=== PATIENT | male | born 1950 | race Caucasian/White ===

== ENCOUNTER 2019-07-21 13:54 | Inpatient (IN) | payer MEDICARE ==
[~2019-07-21] VITALS: Ht 182.9 cm; Wt 88.6 kg
--- NOTE | ~2019-07-21 | HEMODYNAMI ---
PATIENT:EL REYES MEDICAL RECORD: [id number] : 46 LOCATION:[place] [address] ADMISSION DATE: 07/21/19 Generatedon:07/23/201915:33 Patient name: EL REYES Patient #: [id number] SSN: : 1950 Date of study: 07/23/2019 Page: Of Hemodynamic Procedure Report Patient Data Patient Demographics Procedure consent was obtained First Name: EL Gender: Male Last Name: ERIC : 1950 [facility] Initial: KEYUR Age: 68 year(s) Patient #: [id number] Race: Unknown Additional ID: [id number] Contact details [address]: [address] [place] [address] State: [place] City: [place] Zip code: [address] Admission Admission Data Admission Date: 07/21/2019 Admission Time: 14:29 Room #: [facility] Procedure Procedure Types Cath Procedure Peripheral Cath Diagnostic Procedure Venography Extremity Procedure Description Procedure Date Procedure Date: 07/23/2019 Procedure Start Time: 14:25 Procedure Staff Name Function Santana Bey MD Performing Physician Adriano Sanderson RT Monitor Tiffanie Pérez RT Scrub Magy Castañeda RN Nurse Procedure Data Cath Procedure Fluoroscopy Diagnostic fluoroscopy Total fluoroscopy Time: 6 time: 6 min min Diagnostic fluoroscopy Total fluoroscopy dose: 124 dose: 124 mGy mGy Contrast Material Contrast Material Type Amount (ml) Isovue 300 40 Procedure Medications Medication Administration Route Dosage Heparin Flush Bag added to field 2 bags (1000units/500ml NS) Lidocaine 1% added to field 20 Versed I.V. 1 mg Fentanyl I.V. 50 mcg Benadryl I.V. 50 mg Heparin Bolus I.V. 5000 units TPA 10 Versed I.V. 1 mg Fentanyl I.V. 50 mcg Versed I.V. 1 mg Fentanyl I.V. 50 mcg Hemodynamics Rest Heart Rate: 97 (bpm) Snapshots Pre Cath Intra NCS Post Cath Vital Signs Time Heart Resp SPO2 etCO2 NIBP (mmHg) Rhythm Pain Sedation Rate (ipm) (%) (mmHg) Status Level (bpm) 14:08:37 95 14 100 27.6 175/99(142) NSR 0 (11) 10(A) , No pain 14:12:53 97 8 100 31.3 169/94(128) NSR 0 (11) 10(A) , No pain 14:17:09 97 13 100 32.8 164/99(130) NSR 0 (11) 10(A) , No pain 14:21:23 99 11 100 32.1 161/98(131) NSR 0 (11) 9(A) , No pain 14:25:39 96 10 100 33.6 158/88(118) NSR 0 (11) 9(A) , No pain 14:29:57 102 13 100 32.1 170/95(126) NSR 0 (11) 9(A) , No pain 14:34:15 100 33.6 165/92(121) NSR 0 (11) 8(A) , No pain 14:38:36 97 17 100 30.6 158/89(121) NSR 0 (11) 8(A) , No pain 14:42:54 97 17 100 30.6 161/90(116) NSR 0 (11) 8(A) , No pain 14:47:09 96 19 100 32.1 158/84(121) NSR 0 (11) 8(A) , No pain 14:51:30 90 16 100 29.1 169/91(133) NSR 0 (11) 8(A) , No pain 14:55:52 89 8 100 35.8 171/88(131) NSR 0 (11) 8(A) , No pain 15:00:04 87 17 98 34.3 152/93(122) NSR 0 (11) 8(A) , No pain 15:04:18 86 15 97 30.6 146/91(128) NSR 0 (11) 8(A) , No pain 15:08:32 88 18 99 32.1 164/93(126) NSR 0 (11) 8(A) , No pain 15:12:54 83 16 100 30.6 158/89(129) NSR 0 (11) 8(A) , No pain 15:17:12 83 17 99 33.6 154/91(122) NSR 0 (11) 8(A) , No pain 15:21:30 82 17 99 34.3 155/83(118) NSR 0 (11) 8(A) , No pain 15:25:48 80 14 99 32.1 148/92(123) NSR 0 (11) 8(A) , No pain 15:30:02 86 16 100 29.8 154/99(125) NSR 0 (11) 8(A) , No pain Medications Time Medication Route Dose Verified Delivered Reason Notes Effe ctiveness by by 14:09:52 Heparin Flush added 2 Santana Dillon used for Bag to bags Maida Bey procedure (1000units/500ml field MD PEREZ NS) 14:10:29 Lidocaine 1% added 20ml Santana Dillon for local to vial Maida Bey anesthetic field MD PEREZ 14:21:34 Benadryl I.V. 50 mg Santana Bhatti Per Maida Castañeda RN physician 14:31:21 Versed I.V. 1 mg Santana Bhatti for Maida Castañeda RN sedation 14:31:32 Fentanyl I.V. 50 Santana Bhatti for [facility] Maida Castañeda RN sedation 14:39:28 Heparin Bolus I.V. 5000 Santana Bhatti Per units Maida Castañeda RN physician 14:47:48 TPA IA 10MG Santana Dillon Per Maida keller MD, MD 14:54:59 Versed I.V. 1 mg Santana Bhatti for Maida Castañeda RN sedation 14:55:09 Fentanyl I.V. 50 Santana Bhatti for mcg Maida Castañeda RN sedation 15:12:43 Versed I.V. 1 mg Santana Bhatti for Maida Castañeda RN sedation 15:12:52 Fentanyl I.V. 50 Santana Bhatti for [facility] Maida Castañeda RN sedation Procedure Log Time Note 13:55:19 Adriano Sanderson RT (R) (CV) sent for patient. Start room use. 13:55:29 Time tracking: Regular hours (M-F 7:00 - 5:00) 13:55:37 Plan of Care:Hemodynamics will remain stable., Cardiac rhythm will remain stable., Comfort level will be maintained., Respiratory function will remain adequate., Patient/ family verbilizes understanding of procedure., Procedure tolerated without complication., Recovers from procedure without complications.. 13:55:59 Patient received from Med II to IR Alert and oriented. Tansferred to table in Prone position. 13:56:00 Correct patient and procedure confirmed by team. 13:56:04 Signed procedure consent form obtained from patient. 13:56:05 ECG and BP/O2 sat monitors applied to patient. 13:56:11 Full Disclosure recording started 13:56:11 - 13:56:16 H&P Date Dictated: 07/23/2019 Within 30 days and on chart.. 13:56:16 Pre-procedure instructions explained to patient. 13:56:17 Pre-op teaching completed and patient verbalized understanding. 13:56:34 Use device set IR Diagnostic 13:56:36 Bag Decanter (2002S) opened to sterile field. 13:56:36 Sterile Angiographic Pack opened to sterile field. 13:56:37 Tegaderm 4 x 4 (1626W) opened to sterile field. 14:03:28 Family in waiting room. 14:03:30 Patient NPO since Midnight. 14:03:38 Is the patient allergic to Iodine/contrast media? No. 14:03:42 Patient diabetic? No. 14:03:49 ACC The patient was administered the following blood thiners within the last 24 hours: ACCLovenox 14:03:55 - 14:03:55 ----Pre-sedation anethsthesia assessment.---- 14:03:58 Previous problem with sedation/anesthesia? No ? 14:03:59 Snore? Yes 14:04:00 Sleep apnea? No 14:04:02 Deviated septum? No 14:04:08 Opens mouth fully? Yes 14:04:09 Sticks out tongue? Yes 14:04:14 Airway obstruction? No ? 14:04:16 Dentures? No ? 14:04:28 IV patent on arrival in right hand with 0.9% NaCl at [facility]. 14:04:32 Sharps counted by scrub and verified by R.N. 14:04:32 Alarms reviewed by R. N. 14:04:50 left Popliteal region area was prepped with chlora-prep and draped in sterile fashion 14:07:28 Vital chart was started 14:08:46 Baseline sample Acquired. 14:09:52 Heparin Flush Bag (1000units/500ml NS) 2 bags added to field was administered by Santana Bey MD; used for procedure; Verbal order read back and verified. 14::29 Lidocaine 1% 20ml vial added to field was administered by Santana maldonado MD; for local anesthetic; Verbal order read back and verified. 14::28 Physician arrived 14:: --------ALL STOP TIME OUT------ 14::29 Final Timeout: patient, procedure, and site verified with staff and physician. All members of the team are in agreement. 14:21:33 Popliteal region site verified by team. 14:21:34 Benadryl 50 mg I.V. was administered by Magy Castañeda RN; Per physician ; Verbal order read back and verified. 14:21:36 Fire Safety Assessment: A--An alcohol-based skin anteseptic being used preoperatively., C--Open oxygen or nitrous oxide is being used. 14:21:45 2) 60-89 Mildly reduced kidney function, and other findings (as for stage 1) point to kidney disease. 14:21:49 Sedation plan: IV Moderate Sedation Medication:Versed, Fentanyl 14:25:02 Procedure started. 14:25:12 Local anesthetic to left popliteal vein with Lidocaine 1% by Santana Bey MD.INITIAL ACCESS ONLY 14:25:16 BENTSON 145cm wire (L84514) opened to sterile field. 14:25:16 Micropuncture VSI 4FR kit opened to sterile field. 14:29:15 Cordis 6Fr BRITE TIP 11cm sheath opened to sterile field. 14:31:21 Versed 1 mg I.V. was administered by Magy Castañeda RN; for sedation; Verbal order read back and verified. 14:31:23 GLIDE CATHETER 5FR ANGLED 65cm (CG507) opened to sterile field. 14:31:32 Fentanyl 50 mcg I.V. was administered by Magy Castañeda RN; for sedation ; Verbal order read back and verified. 14:34:40 ROADRUNNER .035 260 glide wire (T12562) opened to sterile field. 14:39:28 Heparin Bolus 5000 units I.V. was administered by Magy Castañeda RN; Per physician; Verbal order read back and verified. 14:39:52 Zelante 8Fr Angiojet catheter opened to sterile field. 14:41:07 AMPLATZ Super stiff Straight 260cm wire ([id number]) opened to sterile field. 14:42:30 Sheath 8fr. Dale 10cm opened to sterile field. 14:47:48 TPA 10MG IA was administered by Santana Bey MD; Per physician; Verba l order read back and verified. 14:54:59 Versed 1 mg I.V. was administered by Magy Castañeda RN; for sedation; Verbal order read back and verified. 14:55:09 Fentanyl 50 mcg I.V. was administered by Magy Castañeda RN; for sedation ; Verbal order read back and verified. 15:01:11 INFLATOR BasixTOUCH (MS8383) opened to sterile field. 15:03:07 Inflate balloon Inflation number: 1 A EVERCROSS 8 X 80 X 135 BALLOON ([id number]( was prepped and advanced across the Undefined1 , then inflated to 8 GUSTAVO for 0:10 (min:sec) . 15:12:43 Versed 1 mg I.V. was administered by Magy Castañeda RN; for sedation; Verbal order read back and verified. 15:12:52 Fentanyl 50 mcg I.V. was administered by Magy Castañeda RN; for sedation ; Verbal order read back and verified. 15:16:20 Procedure ended.(Physican Out) 15:19:23 Fluoroscopy time 06.00 minutes. 15:19:34 Fluoroscopy dose: 124 mGy 15:19:34 Flurop Dose total: 124 15:19:40 Contrast amount:Isovue 300 40ml. 15:19:44 Procedure and supply charges have been captured, reviewed, submitted an d are correct. 15:33:10 Vital chart was stopped Intervention Summary Intervention Notes Time ActionType Lesion and Equipment Used Action# Pressure Duration Attributes 15:03:07 Inflate Undefined1 EVERCROSS 8 X 1 8 00:10 balloon 80 X 135 BALLOON ([id number]( Device Usage Item Name Manufacture Quantity Catalog Number Hospital Part Current M inimal Lot# / Charge Number Stock Stock Serial# Code Bag Decanter Microtek 1 [id number] 16289 [id number] 5 () Medical Inc. Sterile Cardinal 1 [id number] 777983 899692 5 Angiographic Health Pack Tegaderm 4 x 4 3M 1 1626W 234972 967490 123395 5 (1626W) BENTSON 145cm Cook Medical 1 [id number] 429188 582927 5 wire ([id number]) Micropuncture VSI VASCULAR 1 7266V 239008 726469 5 VSI 4FR kit SOLUTIONS Cordis 6Fr Cardinal 1 [id number] 697344 988739 5 BRITE TIP 11cm Health sheath GLIDE CATHETER Terumo 1 CG507 414232 800520 5 5FR ANGLED 65cm (CG507) ROADRUNNER .035 Cook Medical 1 A75569 007512 600162 868732 5 [id number] 260 glide wire ([id number]) Zelante 8Fr [place] 1 775184-065 946890 855087 030263 5 Angiojet Scientific catheter AMPLATZ Super [place] 1 [id number] 276211 15230 734740 5 [id number] stiff Straight Scientific 260cm wire ([id number]) Sheath 8fr. Terumo 1 ISF164 430398 5344867 5 Dale 10cm INFLATOR Merit 1 HV7812 061322 941911 700796 5 Cloudkick ([id number]) EVERCROSS 8 X Medtronic 1 [id number] 784962 524146 1 80 X 135 BALLOON ([id number]( Signature Audit [place] Stage Time Signature Unsigned Intra-Procedure 07/23/2019 Adriano 3:33:07 PM [place] RT (R) (CV) [place] [address] [place] [address]
[~2019-07-21 13:54] MED LIST: MINOCIN100 MG PO; PRILOSEC20 MG PO
[2019-07-21] MEDS ORDERED: ZOCOR20 MG PO (15:21)
[2019-07-21] MEDS ORDERED: DHEA PO (15:22)
[2019-07-21] MEDS ORDERED: FLORAJEN3 CAPS460 MG PO (15:24)
[2019-07-21] MEDS ORDERED: ANDROGEL5 GM TP (15:24)
[2019-07-21] MEDS ORDERED: MULTI-DAY VITAM1 TAB PO (15:25)
[2019-07-21] MEDS ORDERED: ICAP PO (15:28)
[2019-07-21] MEDS ORDERED: FIBER-TABS625 MG PO (15:29)
[2019-07-21 15:37] VITALS: BP 139/85
--- NOTE | 2019-07-21 16:09 | NUR ---
COULD NOT FIND VEIN FOR IV. CHIRAG LOZANO COULD NOT FIND ONE EITHER. ANAMIKA LOZANOJOB RECRUITER NURSE CALLED.
[2019-07-21 16:42] VITALS: BP 139/85; Ht 182.9 cm; Wt 88.6 kg
--- NOTE | 2019-07-21 16:48 | NUR ---
ANAMIKA LOZANO GOT A 20G IV IN LEFT AC.
--- NOTE | 2019-07-21 19:03 | NUR ---
PT UP WALKIND AROUND IN ROOM ALERT AND ORIENTED X4. NO S/S OF DISTRESS AT THIS TIME. PT DENIES ANY PAIN OR NEEDS AT THIS TIME. BED LOW CALL LIGHT WITHIN REACH. WILL CONTINUE TO MONITOR.
[2019-07-21 20:00] VITALS: BP 123/73
--- NOTE | 2019-07-21 20:00 | NUR ---
BOTH PT IV'S IN LEFT AND RIGHT AC'S INFILTRATED. IV'S DC'D WITH CATHETER TIP IN PLACE. SWELLING NOTED IN LAC. WARM COMPRESS APPLIED. 20G IV ESTABLISHED IN PT'S LEFT FOREARM. IV PATENT. PT DENIES ANY PAIN OR NEEDS AT THIS TIME. BED LOW CALL LIGHT WITHIN REACH. WILL CONTINUE TO MONITOR.
[2019-07-21 23:01] LABS: CKMB 0.5 U/L (0.0-3.6); CREATINE KINASE 28 UL (21-232); TROPONIN-I < 0.017 ng/mL (0.000-0.060)
[2019-07-22] VITALS: BP 136/79
[2019-07-22 05:51] LABS: BASOPHILS 0.4 % (0-2); EOSINOPHILS 6.7 % (0-7); HEMOGLOBIN 13.2 g/dL (13.5-17.5); IMMATURE GRANULOCYTES 0.4 % (0-5); LYMPHOCYTES 26.6 % (15-50); MCH 30.5 pg (26.0-34.0); MCHC 33.8 g/dL (31.0-37.0); MCV 90.1 fL (80.0-100.0); MEAN PLATELET VOLUME 9.4 fL (7.4-10.4); MONOCYTES 9.5 % (2-11); NEUTROPHILS 56.4 % (40-80); RBC 4.33 10x6/uL (4.20-6.10); RDW 15.1 % (11.5-14.5); WBC 7.9 10x3/uL (4.8-10.8)
[2019-07-22 05:59] LABS: PLATELET COUNT 137 10x3/uL (130-400)
[2019-07-22 06:36] LABS: ANION GAP 12.4 mmol/L (8-16); CALCIUM 9.1 mg/dL (8.5-10.1); CARBON DIOXIDE 26.8 mmol/L (21.0-32.0); CREATININE - SERUM 1.1 mg/dL (0.6-1.3); PHOSPHOROUS 2.8 mg/dL (2.5-4.9); POTASSIUM - SERUM 4.2 mmol/L (3.5-5.1)
[2019-07-22 06:40] LABS: APTT 34.7 SECONDS (22.8-39.4); INR 1.15 (0.85-1.17); PROTIME 14.2 SECONDS (11.6-15.0)
--- NOTE | 2019-07-22 07:16 | NUR ---
REPORT RECEIVED. WILL CONTINUE WITH POC. PT CURRENTLY LYING SEMI FOWLERS. CALL LIGHT W/I REACH. PT IS AAO AND UP WITH ASSIST. RR EVEN AND UNLABORED ON RA. R.FOR PIV IS SALINE LOCKED. NO S/S OF DISTRESS NOTED. PT DENIES ANY NEEDS. WILL CTM.
[2019-07-22 08:00] VITALS: BP 117/77
--- NOTE | 2019-07-22 10:50 | NUR ---
I have reviewed this patient and I concur with the Shift Assessment completed by the Licensed Practical Nurse today this shift.
[2019-07-22 12:24] VITALS: BP 123/72
[2019-07-22 16:19] VITALS: BP 142/73
--- NOTE | 2019-07-22 19:27 | NUR ---
REPORT RECIEVED AND ROUNDING COMPLETE. PATIENT LAYING IN BED, SON AT BEDSIDE. PATIENT'S LEFT LEG IS ELEVATED. PATIENT HAS A LEFT FOREARM PIV THAT IS SALINE LOCKED, PIV HAS NO S/SX OF INFILTRATION OR INFECTION AT THIS TIME. PATIENT IS SHOWING NO S/SX OF DISTRESS AND STATES HE HAS NO NEEDS AT THIS TIME. CALL LIGHT WITHIN REACH AND BED IN LOWEST LOCKED POSITION.
[2019-07-22 20:15] VITALS: BP 127/74
[2019-07-23] VITALS (12 sets, daily range): BP systolic 116–151; BP diastolic 73–90
--- NOTE | 2019-07-23 04:33 | NUR ---
I have reviewed this patient and I concur with the Shift Assessment completed by the Licensed Practical Nurse today this shift.
[2019-07-23 06:37] LABS: ANION GAP 9.1 mmol/L (8-16); CALCIUM 8.7 mg/dL (8.5-10.1); CARBON DIOXIDE 28.7 mmol/L (21.0-32.0); CREATININE - SERUM 1.1 mg/dL (0.6-1.3); POTASSIUM - SERUM 4.8 mmol/L (3.5-5.1)
[2019-07-23 06:58] LABS: BASOPHILS 0.3 % (0-2); EOSINOPHILS 6.4 % (0-7); HEMATOCRIT 39.2 % (42.0-54.0); HEMOGLOBIN 13.2 g/dL (13.5-17.5); IMMATURE GRANULOCYTES 0.5 % (0-5); LYMPHOCYTES 33.2 % (15-50); MCH 30.5 pg (26.0-34.0); MCHC 33.7 g/dL (31.0-37.0); MCV 90.5 fL (80.0-100.0); MEAN PLATELET VOLUME 10.1 fL (7.4-10.4); MONOCYTES 9.1 % (2-11); NEUTROPHILS 50.5 % (40-80); PLATELET COUNT 162 10x3/uL (130-400); RBC 4.33 10x6/uL (4.20-6.10); RDW 15.2 % (11.5-14.5); WBC 7.5 10x3/uL (4.8-10.8)
--- NOTE | 2019-07-23 10:44 | NUR ---
URINE SPECIMEN CUP AND INSTRUCTIONS GIVEN TO PT ON HOW TO COLLECT. WILL WAIT FOR PT TO LET US KNOW WHEN HE COLLECTS SPECIMEN AND TAKE IT TO LAB.
--- NOTE | 2019-07-23 12:15 | NUR ---
I have reviewed this patient and I concur with the Shift Assessment completed by the Licensed Practical Nurse today this shift.
--- NOTE | 2019-07-23 12:21 | NUR ---
NPO SIGN HUNG ON DOOR AND PT AWARE OF NPO STATUS.
[2019-07-23 12:51] LABS: APPEARANCE CLEAR (CLEAR); BILIRUBIN NEGATIVE (NEGATIVE); COLOR YELLOW (YELLOW); GLUCOSE NEGATIVE (NEGATIVE); KETONE NEGATIVE (NEGATIVE); NITRITE NEGATIVE (NEGATIVE); PROTEIN NEGATIVE (NEGATIVE); SPECIFIC GRAVITY 1.005 (1.005-1.020); UROBILINOGEN NORMAL (NORMAL)
--- NOTE | 2019-07-23 12:58 | MORECARE ---
CASE MANAGEMENT DISCHARGE SUMMARY PATIENT: EL REYES GENE UNIT: [id number] ADM DATE: 07/21/19 AGE: 68 : 48 SEX: M ROOM/BED: D.2130 AUTHOR: KAREN JADE PHYSICIAN: REFERRING PHYSICIAN: PRIYA ALEXANDER MD DATE OF SERVICE: 07/23/19 Discharge Plan Patient Name: EL REYES Facility: [facility]:[place] : 1950 Planned Disposition: Home Anticipated Discharge Date: Discharge Date: Expected LOS: Initial Reviewer: [email or web address] Initial Review Date: 07/23/2019 Generated: 07/23/19 1:57 pm Comments DCP- Discharge Planning Updated by [email or web address]: Angelica Saravia on 07/23/19 11:[address] Patient Name: EL REYES Admission Status: Elective Accout number: [id number] Admission Date: 07-21-2019 : 1950 Admission Diagnosis: Attending: PRIYA ALEXANDER Current LOS: 2 Anticipated DC Date: Planned Disposition: Home Primary Insurance: MEDICARE A & B Discharge Planning Comments: CM MET WITH PATIENT ABOUT DC PLANNING/NEEDS. STATES NO NEEDS AND PLANS TO DC TO HOME WITH ROSALIA. HH AND REHAB DISCUSSED AND STATES DOES NOT NEED THEM. CM TO FOLLOW AND ASSIST. Sourcing Specialist: Angelica Saravia DCPIA - Discharge Planning Initial Assessment Updated by [email or web address]: Angeliac Saravia on 07/23/19 12:53 pm * Is the patient Alert and Oriented? Yes * PCP CLAUDETTE * [facility] * Preadmission Environment Home with Family * ADLs Independent * Equipment None * List name and contact numbers for known caregivers / representatives who currently or will assist patient after discharge: ROSALIA, * Community resources currently utilized None * Additional services required to return to the preadmission environment? No * Can the patient safely return to the preadmission environment? Yes * Has this patient been hospitalized within the prior 30 days at any hospital? No Patient Name: EL REYES Page 32624 at 1258 All edits/amendments must be made on the electronic document DICTATION DATE: 07/23/19 1257 PT ESCORT: LYNETTE 07/23/19 1257 RPT#: [id number] DC DATE: STATUS: ADM IN [facility] [address] [place] [address] END OF REPORT
--- NOTE | 2019-07-23 13:45 | NUR ---
CONSENTS SIGNED AND PT TAKEN FOR PROCEDURE.
--- NOTE | 2019-07-23 15:27 | NUR ---
SPOKE WITH DEJON LOZANO IN SPECIAL. SHE STTAES PT HAS A THROMBOLYSIS SHE GAVE 3 VERSED AND 150 FENTANYL 5000 UNITS OF HEPARIN AND TPA. ANGIOPLASTY WAS DONE. DRESSING TO BACK OF LEFT CALF. AND PT NEEDS TO KEEP LEG STRAIGHT FOR FOUR HOURS.
--- NOTE | 2019-07-23 15:45 | NUR ---
PT ARRIVED BACK FROM SX ALERT AND ORIENTED ON ROOM AIR. VS STABLE. BACK OF LEFT CALF DRESSING C/D/I. FAMILY AT BEDSIDE. WILL CONTINUE TO MONITOR. BED LOW. CL IN REACH.
--- NOTE | 2019-07-23 18:37 | NUR ---
BACK OF LEFT CALF DRESSING STILL C/D/I. PT ALERT AND ORIENTED. PT HAS NO FURTHER NEDDS AT THIS TIME. BED LOW. CL IN REACH.
--- NOTE | 2019-07-23 19:30 | NUR ---
PT A/0X4, RIGHT PIV INTACT WITH NS @ KVO, DRESSING C/D/I TO BACK OF LEFT CALF, VISITOR @ BEDSIDE, NO C/O
[2019-07-24] VITALS: BP 137/80
[2019-07-24 05:14] LABS: BASOPHILS 0.2 % (0-2); EOSINOPHILS 5.6 % (0-7); HEMATOCRIT 40.3 % (42.0-54.0); HEMOGLOBIN 13.8 g/dL (13.5-17.5); IMMATURE GRANULOCYTES 0.7 % (0-5); LYMPHOCYTES 31.1 % (15-50); MCH 30.7 pg (26.0-34.0); MCHC 34.2 g/dL (31.0-37.0); MCV 89.6 fL (80.0-100.0); MEAN PLATELET VOLUME 9.2 fL (7.4-10.4); NEUTROPHILS 54.4 % (40-80); PLATELET COUNT 166 10x3/uL (130-400); WBC 8.4 10x3/uL (4.8-10.8)
[2019-07-24 05:44] LABS: ANION GAP 10.4 mmol/L (8-16); CALCIUM 8.9 mg/dL (8.5-10.1); CARBON DIOXIDE 30.1 mmol/L (21.0-32.0); CREATININE - SERUM 1.2 mg/dL (0.6-1.3); POTASSIUM - SERUM 4.5 mmol/L (3.5-5.1)
--- NOTE | 2019-07-24 07:19 | NUR ---
REPORT RECEIVED. WILL CONTINUE WITH POC. PT CURRENTLY LYING SUPINE. CALL LIGHT W/I REACH. LEFT LEG IS ELEVATED, DRESSING IN TACT. RR EVEN AND UNLABORED ON RA. NS INFUSING @KVO VIA R.FOR PIV. NO S/S OF DISTRESS NOTED. PT DENIES ANY NEEDS. WILL CTM.
[2019-07-24 08:34] VITALS: BP 128/74
[2019-07-24 12:30] VITALS: BP 129/75
[2019-07-24] MEDS ORDERED: ELIQUIS5 MG PO ×2 (13:03→13:04)
[2019-07-24] MEDS ORDERED: PROTONIX40 MG PO (13:04)
--- NOTE | 2019-07-24 14:44 | NUR ---
PT DISCHARGED HOME VIA WHEELCHAIR WITH FAMILY. PIV REMOVED WITH CATHETER TIP FULLY INTACT. PT SIGNED PROPER DISCHARGE INSTRUCTIONS AND REMOVED ALL VALUABLES FROM THE ROOM. TELEMTRY REMOVED AND RETURNED.
--- NOTE | 2019-07-24 16:56 | MORECARE ---
CASE MANAGEMENT DISCHARGE SUMMARY PATIENT: EL REYES GENE UNIT: [id number] ADM DATE: 07/21/19 AGE: 68 : 48 SEX: M ROOM/BED: D.2130 AUTHOR: KAREN JADE PHYSICIAN: REFERRING PHYSICIAN: PRIYA ALEXANDER MD DATE OF SERVICE: 07/24/19 Discharge Plan Patient Name: EL REYES Facility: [facility]:[place] : 1950 Planned Disposition: Home Anticipated Discharge Date: Discharge Date: 07/24/2019 Expected LOS: Initial Reviewer: [email or web address] Initial Review Date: 07/23/2019 Generated: 07/24/19 5:55 pm DCP- Discharge Planning Updated by [email or web address]: Angelica Saravia on 07/23/19 11:[address] Patient Name: EL REYES Admission Status: Elective Accout number: [id number] Admission Date: 07-21-2019 : 1950 Admission Diagnosis: Attending: PRIYA ALEXANDER Current LOS: 2 Anticipated DC Date: Planned Disposition: Home Primary Insurance: MEDICARE A & B Discharge Planning Comments: CM MET WITH PATIENT ABOUT DC PLANNING/NEEDS. STATES NO NEEDS AND PLANS TO DC TO HOME WITH ROSALIA. HH AND REHAB DISCUSSED AND STATES DOES NOT NEED THEM. CM TO FOLLOW AND ASSIST. Landscaping Manager: Angelica Saravia DCPIA - Discharge Planning Initial Assessment Updated by [email or web address]: Angelica Saravia on 07/23/19 12:53 pm * Is the patient Alert and Oriented? Yes * PCP CLAUDETTE * [facility] * Preadmission Environment Home with Family * ADLs Independent * Equipment None * List name and contact numbers for known caregivers / representatives who currently or will assist patient after discharge: ROSALIA, * Community resources currently utilized None * Additional services required to return to the preadmission environment? No * Can the patient safely return to the preadmission environment? Yes * Has this patient been hospitalized within the prior 30 days at any hospital? No Last DP export: 07/23/19 11:58 a Patient Name: EL REYES Page 92725 at 1656 All edits/amendments must be made on the electronic document DICTATION DATE: 07/24/191654 COMMUNITY HEALTH REPRESENTATIVE: LYNETTE 07/24/191654 RPT#: [id number] DC DATE:07/24/19 STATUS: DIS IN [facility] [address] [place] [address] END OF REPORT
[2019-07-25 14:09] LABS: ACLA - IGG AB <9 GPL U/mL (0-14); ACLA - IGM AB <9 MPL U/mL (0-12)
[2019-07-26 12:09] LABS: LUPUS - INTERPRETATION Comment: (()); LUPUS - THROMBIN TIME 18.4 sec (0.0-23.0); LUPUS - dRVVT 37.7 sec (0.0-47.0); PTT-LA 46.9 sec (0.0-51.9)
== END 2019-07-24 14:46 | disposition home or self-care (01) | DRG 254 ==
LOC: D.SDCHOLD 13:54 → D.M2 14:29
PROVIDERS: Internal Medicine Medical Oncology; Radiology Diagnostic Radiology; ADMIT Internal Medicine Nephrology; ATTEND Internal Medicine Nephrology
PROC: 3E03317 Introduction of Other Thrombolytic into Peripheral Vein, Percutaneous Approach (ICD-10-PCS; 2019-07-23)
PROC: 067N3ZZ Dilation of Left Femoral Vein, Percutaneous Approach (ICD-10-PCS; principal; 2019-07-23 13:45)
DX: I82.402 Acute embolism and thrombosis of unspecified deep veins of left lower extremity (principal); T38.7X5A Adverse effect of androgens and anabolic congeners, initial encounter; T38.0X5A Adverse effect of glucocorticoids and synthetic analogues, initial encounter; E78.5 Hyperlipidemia, unspecified; K21.9 Gastro-esophageal reflux disease without esophagitis; D64.9 Anemia, unspecified